=== PATIENT | male | born 1935 ===

== ENCOUNTER 2017-04-19 19:14 | Inpatient (IN) | payer OTHER, MEDICARE ==
[2017-04-19] MEDS ORDERED: Nitroglycerin 50mg in D5W 50 MG/250 ML BOTTLE IV ONE ×2 (19:16→19:29)
[2017-04-19 19:17] VITALS: BMI 40.6
[2017-04-19 19:38] LABS: BASO # 0.1 K/uL (0.0-0.2); BASO % 0.5 % (0.0-2.0); EOS % 7.9 % (0.0-4.0); HEMATOCRIT 38.8 % (35.0-51.0); LYMPH # 1.5 K/uL (1.0-4.3); LYMPH % 12.1 % (20.0-40.0); MEAN CELL VOLUME 81.2 fl (80.0-94.0); MEAN CORPUSCULAR HGB CONC 30.7 g/dL (33.0-37.0); MEAN PLATELET VOLUME 8.8 fl (7.2-11.7); MONO # 0.9 K/uL (0.0-0.8); MONO % 7.1 % (0.0-10.0); NEUT # 8.8 K/uL (1.8-7.0); NEUT % 72.4 % (50.0-75.0); RED CELL DISTRIBUTION WIDTH 18.9 % (11.5-14.5); WHITE BLOOD COUNT 12.2 K/uL (4.8-10.8)
[2017-04-19 20:58] LABS: RBC URINE < 1 /hpf (0-3); URINE BACTERIA RARE (<OCC); URINE BILIRUBIN NEGATIVE (NEGATIVE); URINE BLOOD NEGATIVE (NEGATIVE); URINE COLOR STRAW (YELLOW); URINE GLUCOSE (UA) NEG (Normal); URINE KETONE NEGATIVE (NEGATIVE); URINE LEUKOCYTE ESTERASE TRACE Leu/uL (Negative); URINE PROTEIN >=500 mg/dL (NEGATIVE); URINE UROBILINOGEN 0.2-1.0 mg/dL (0.2-1.0); WBC URINE 7 /hpf (0-5)
[2017-04-19 21:47] LABS: BLOOD UREA NITROGEN 15 mg/dl (9-20); CARBON DIOXIDE 28 mmol/L (22-30); CHLORIDE 102 mmol/L (98-107); GFR AFRICAN-AMERICAN > 60; GLUCOSE,RANDOM 121 mg/dL (75-110); LIPASE 47 U/L (23-300); POTASSIUM 4.3 MMOL/L (3.6-5.0); SODIUM 142 mmol/l (132-148)
--- NOTE | 2017-04-19 22:17 | ED PDOC ---
HPI: SOB/CHF/COPD Time Seen by Provider: 04/19/17 19:29 Chief Complaint (Nursing): Shortness Of Breath Chief Complaint (Provider): Shortness of Breath History Per: Patient History/Exam Limitations: no limitations Onset/Duration Of Symptoms: Days (several days) Current Symptoms Are (Timing): Still Present Quality: Tightness (chest tightness) Severity: Severe Associated Symptoms: Ankle/Leg Swelling, Other (chest tightness, shortness of breath) Additional Complaint(s): 81 year old male with a pertinent medical history of HTN and diabetes is brought into the ED by EMS for respiratory distress. HPI is limited due to patient's inability to answer secondary to clinical condition. HPI as per EMS: patient was found in his car returning from [facility] when he started to have acute onset shortness of breath and chest tightness (ongoing and worsening) accompanied by lower extremity edema. PMD: Raymond Agosto MD Past Medical History Reviewed: Historical Data, Nursing Documentation, Vital Signs Vital Signs: Last Vital Signs Temp Pulse 95 H 04/19/17 23:14 Resp 24 04/19/17 19:31 BP 163/132 H 04/19/17 19:32 Pulse Ox 92 L 04/19/17 23:14 - Medical History PMH: CHF (patient currently getting a workup from PMD for possible CHF), Diabetes, HTN Denies: Chronic Kidney Disease - Surgical History Other surgeries: toe surgery [facility] - Family History Family History: States: Unknown Family Hx - Living Arrangements Living Arrangements: With Family - Social History Current smoker - smoking cessation education provided: No Alcohol: None Drugs: Denies - Home Medications Home Medications: Ambulatory Orders Medication Instructions Recorded Carvedilol [Coreg] 25 mg PO DAILY 04/19/17 Furosemide [Lasix] 20 mg PO QAM 04/19/17 Insulin Glargine, Recombina 25 units SC BID 04/19/17 [Lantus] Olmesartan Medoxomil [Benicar] 20 mg PO DAILY 04/19/17 SITagliptin [Januvia] 100 mg PO DAILY 04/19/17 metFORMIN [glucOPHAGE] 500 mg PO BID 04/19/17 - Allergies Allergies/Adverse Reactions: Allergies Allergy/AdvReac Type Severity Reaction Status Date / Time No Known Allergies Allergy Verified 04/19/17 19:31 Review of Systems Review Of Systems: ROS cannot be obtained secondary to pt's inabilty to answer questions. (due to clinical condition) Physical Exam - Reviewed Nursing Documentation Reviewed: Yes Vital Signs Reviewed: Yes - Physical Exam Appears: Positive for: Non-toxic, In Acute Distress (severe respiratory distress ) Head Exam: Positive for: ATRAUMATIC, NORMOCEPHALIC Skin: Positive for: Dry, Diaphoresis. Negative for: Warm (cool and clammy extremities. other: chronic appearing skin changes.) Cardiovascular/Chest: Positive for: Regular Rate, Rhythm Respiratory: Positive for: Decreased Breath Sounds (diminished breath sounds bilaterally) Extremity: Positive for: Swelling (bilateral lower extremities 3+ non pitting edema) Neurologic/Psych: Positive for: Alert, Oriented (3x. neuro in tact) - Laboratory Results Result Diagrams: 04/19/17 19:20 04/19/17 20:20 - ECG ECG: Positive for: Interpreted By Me ECG Rhythm: Positive for: Sinus Rhythm, ST/T Changes Rate: 95 O2 Sat by Pulse Oximetry: 92 (RA) Pulse Ox Interpretation: Abnormal (mod hypoxia on 100% NRB) - Radiology X-Ray: Interpreted by Tx X-Ray Interpretation: Cardiomegaly - Critical Care Total Time (In Min): 75 Comments: pt required immediate and sustained bedside attention for resp distress and unstable vital signs Medical Decision Making Medical Decision Makin:29 Initial impression: 81 year old male in respiratory distress, Initial plan: Workup for likely CHF insetting of hypertension. Patient is placed on BIPAP for respiratory distress and lasix nitroglycerin drip is initiated. * Type and screen * ABG shock panel * EKG * B-type natriuretic peptide * BMP * lipase * troponin I * CBC * PT/PTT * XRay chest 1 view * reevaluation 20:00 Patient's arrives to ED. She reports that patient is currently under workup for CHF with his PMD. She reports that he is due to have an echocardiogram and stress test next month. She states that he takes lasix daily and for the past several days he has been complaining of shortness of breath. 22:30 Patients respiratory status has mildly improved on BIPAP, however he remains nitroglycerin drip dependent and pCO2 on ABG reveals hypercarbia of 58. Patient's will be upgraded to ICU for management of symptoms of CHF exacerbation with respiratory failure and under Dr. Agosto. There is agreement to plan. 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 Scribe Attestation: Documented by Shelia Spencer, acting as a scribe for Tristen Woodard III, MD. Provider Scribe Attestation: All medical record entries made by the Scribe were at my direction and personally dictated by me. I have reviewed the chart and agree that the record accurately reflects my personal performance of the history, physical exam, medical decision making, and the department course for this patient. I have also personally directed, reviewed, and agree with the discharge instructions and disposition. Disposition - Clinical Impression Clinical Impression: CHF exacerbation, Respiratory distress, Hypercarbia - Patient ED Disposition Is Patient to be Admitted: Yes Counseled Patient/Family Regarding: Studies Performed - Disposition Disposition Time: 21:39 Condition: STABLE
[2017-04-19 22:50] LABS: ABG ALLEN TEST YES; ABG MECHANICAL RATE 14; ARTERIAL BLOOD GAS HCO3 32.2 mmol/L (21-28); ARTERIAL BLOOD GAS PO2 180 mm/Hg (80-100)
--- NOTE | 2017-04-19 23:52 | CP.PCM.HP ---
Past Patient History - Past Social History Alcohol: None Drugs: Denies - CARDIAC Hx Congestive Heart Failure: Yes (patient currently getting a workup from PMD for possible CHF) Hx Hypertension: Yes - PULMONARY Hx Respiratory Disorders: No - NEUROLOGICAL Hx Neurological Disorder: No - HEENT Hx HEENT Problems: No - RENAL Hx Chronic Kidney Disease: No - ENDOCRINE/METABOLIC Hx Diabetes Mellitus Type 2: Yes - HEMATOLOGICAL/ONCOLOGICAL Hx Blood Disorders: No - INTEGUMENTARY Hx Dermatological Problems: No - MUSCULOSKELETAL/RHEUMATOLOGICAL Hx Musculoskeletal Disorders: No - GASTROINTESTINAL Hx Gastrointestinal Disorders: No - GENITOURINARY/GYNECOLOGICAL Hx Genitourinary Disorders: No - PSYCHIATRIC Hx Psychophysiologic Disorder: No Hx Substance Use: No Meds Allergies/Adverse Reactions: Allergies Allergy/AdvReac Type Severity Reaction Status Date / Time No Known Allergies Allergy Verified 04/19/17 19:31 Results - Vital Signs Recent Vital Signs: Last Vital Signs Temp Pulse 95 H 04/19/17 23:15 Resp 24 04/19/17 19:31 BP 163/132 H 04/19/17 19:32 Pulse Ox 92 L 04/19/17 23:15 - Labs Result Diagrams: 04/19/17 19:20 04/19/17 20:20 Labs: Laboratory Results - last 24 hr 04/19/17 04/19/17 21:40 22:30 pCO2 58 H pO2 180 H HCO3 32.2 H ABG pH 7.40 ABG Total CO2 37.7 H ABG O2 Saturation 100.1 H ABG Base Excess 9.3 H Aquiles Test Yes ABG Potassium 3.8 A-a O2 Difference 175.0 Sodium 140.0 Chloride 105.0 Glucose 111 H Lactate 0.6 L Mechanical Rate 14 FiO2 60.0 Pressure Support 0 Inspiratory BiPAP 10 Expiratory BiPAP 5 Arterial Blood Potassium 3.8 Blood Type Confirm O POSITIVE Assessment & Plan - Date & Time Date: 04/19/17 Time: 23:52
--- NOTE | 2017-04-19 23:56 | CP.PCM.CON ---
History of Present Illness - History of Present Illness History of Present Illness: Attending: Dr Agosto Reason for Consult: Critical care management Chief complaint: SOB HPI: 81 years old male with hx of HTN, DM, edema to both lower extremities, being worked up for CHF, comes with one day of worsening SOB and chest tightness. He has been having SOB for several days and was following up with his PMD for CHF. In the ED the the initial BP was 236/123mmHg and the patient was in severe respiratory distress. He was given IV lasix and placed on BIPAP and a tridil drip started. he has appointment with his PCP for nest Tuesday. PMH:CHF (patient currently getting a workup from PMD for possible CHF), Diabetes , HTN PSH: Bilateral Hip replacement, Toe surgery SH: Quit smoking 30years; Alcohol occasionally; Live with ; Retired FH: unknown family history Allergies: NKDA Review of Systems - Constitutional Constitutional: absent: Anorexia, Chills, Fever, Headache, Lethargy - EENT Eyes: Requires Corrective Lenses. absent: Diplopia, Floaters, Pain Ears: absent: Decreased Hearing, Ear Discharge, Ear Pain, Tinnitus Nose/Mouth/Throat: absent: Epistaxis, Nasal Congestion, Nasal Discharge - Cardiovascular Cardiovascular: Dyspnea, Dyspnea on Exertion, Edema, Pedal Edema - Respiratory Respiratory: Cough, Dyspnea, Dyspnea on Exertion, Chest Congestion - Gastrointestinal Gastrointestinal: Abdominal Pain. absent: Constipation, Diarrhea, Nausea, Vomiting - Genitourinary Genitourinary: absent: Dysuria, Flank Pain, Hematuria, Urinary Frequency - Musculoskeletal Musculoskeletal: Arthralgias Additional comments: leg pains - Integumentary Integumentary: Swelling. absent: Pruritus, Rash Additional comments: Weeping edema at the lower extremities - Neurological Neurological: absent: Confusion, Focal Weakness, Headaches, Syncope Additional comments: Uses walker - Psychiatric Psychiatric: absent: Anxiety, Depression, Panic Attacks - Endocrine Endocrine: absent: Palpitations, Polydipsia, Polyphagia, Polyuria - Hematologic/Lymphatic Hematologic: absent: Easy Bleeding, Easy Bruising Past Patient History - Past Social History Smoking Status: Former Smoker Chewing Tobacco Use: No Cigar Use: No Alcohol: None Drugs: Denies Home Situation {Lives}: With Family - CARDIAC Hx Congestive Heart Failure: Yes (patient currently getting a workup from PMD for possible CHF) Hx Hypertension: Yes - PULMONARY Hx Respiratory Disorders: No - NEUROLOGICAL Hx Neurological Disorder: No - HEENT Hx HEENT Problems: No - RENAL Hx Chronic Kidney Disease: No - ENDOCRINE/METABOLIC Hx Diabetes Mellitus Type 2: Yes - HEMATOLOGICAL/ONCOLOGICAL Hx Blood Disorders: No - INTEGUMENTARY Hx Dermatological Problems: No - MUSCULOSKELETAL/RHEUMATOLOGICAL Hx Musculoskeletal Disorders: No - GASTROINTESTINAL Hx Gastrointestinal Disorders: No - GENITOURINARY/GYNECOLOGICAL Hx Genitourinary Disorders: No - PSYCHIATRIC Hx Psychophysiologic Disorder: No Hx Substance Use: No - SURGICAL HISTORY Hx Surgeries: Yes Other/Comment: Bilateral hip prosthesis/ Left foot toe surgery - ANESTHESIA Hx Anesthesia: Yes Hx Anesthesia Reactions: No Meds Allergies/Adverse Reactions: Allergies Allergy/AdvReac Type Severity Reaction Status Date / Time No Known Allergies Allergy Verified 04/19/17 19:31 - Medications Medications: Current Medications Nitroglycerin/Dextrose (Nitroglycerin 50 Mg/250 Ml D5w) 50 mg in 250 mls @ 2.4 mls/hr IV .Q24H ONE; 8 MCG/MIN PRN Reason: Protocol Stop: 04/20/17 19:28 Last Admin: 04/19/17 19:31 Dose: 2.4 mls/hr Physical Exam - Constitutional Appears: In Acute Distress - Head Exam Head Exam: ATRAUMATIC, NORMAL INSPECTION, NORMOCEPHALIC - Eye Exam Eye Exam: EOMI, Normal appearance Pupil Exam: PERRL - ENT Exam ENT Exam: Mucous Membranes Moist, Normal Exam, Normal External Ear Exam, Normal Oropharynx - Neck Exam Neck exam: Positive for: Full Rom, Normal Inspection. Negative for: Lymphadenopathy, Tenderness - Respiratory Exam Additional comments: Mild rales in both lung mejia - Cardiovascular Exam Cardiovascular Exam: REGULAR RHYTHM, RRR, +S1, +S2 - GI/Abdominal Exam GI & Abdominal Exam: Normal Bowel Sounds, Soft. absent: Organomegaly, Tenderness - Rectal Exam Rectal Exam: Deferred - Extremities Exam Additional comments: Edema to both lower extremities with Bronz colored dry skin at distal half of both lower extremities, non tender to palpation. - Back Exam Back exam: NORMAL INSPECTION. absent: CVA tenderness (L), CVA tenderness (R) - Neurological Exam Neurological exam: CN II-XII Intact, Normal Gait, Oriented x3, Reflexes Normal - Psychiatric Exam Psychiatric exam: Normal Affect, Normal Mood - Skin Skin Exam: Dry, Intact, Normal Color, Warm Results - Vital Signs Recent Vital Signs: Last Vital Signs Temp Pulse 70 04/19/17 23:52 Resp 24 04/19/17 19:31 BP 163/132 H 04/19/17 19:32 Pulse Ox 92 L 04/19/17 23:15 - Labs Result Diagrams: 04/19/17 19:20 04/19/17 20:20 Labs: Laboratory Results - last 24 hr 04/19/17 04/19/17 21:40 22:30 pCO2 58 H pO2 180 H HCO3 32.2 H ABG pH 7.40 ABG Total CO2 37.7 H ABG O2 Saturation 100.1 H ABG Base Excess 9.3 H Aquiles Test Yes ABG Potassium 3.8 A-a O2 Difference 175.0 Sodium 140.0 Chloride 105.0 Glucose 111 H Lactate 0.6 L Mechanical Rate 14 FiO2 60.0 Pressure Support 0 Inspiratory BiPAP 10 Expiratory BiPAP 5 Arterial Blood Potassium 3.8 Blood Type Confirm O POSITIVE - EKG Data EKG comments: NSR 95/min - Imaging and Cardiology Chest x-ray Status: Image reviewed by me Additional comment: Bilateral interstitial infiltrate Assessment & Plan - Assessment and Plan (Free Text) Assessment: #. Acute CHF #. Respiratory distress #. Hypertensive Urgency #. DM II #. leukocytosis #. Anemia Plan: 81 years old male with hx of HTN, DM, edema to both lower extremities,being worked up for CHF, comes with one day of worsening SOB and chest tightness. He has been having SOB for several days and was following up with his PMD for CHF. In the ED the initial BP was 236/123mmHg abd the patient was in severe respiratory distress. #. Acute CHF - consult Dr Storey Cardiology - IV lasix 40mg BID - Coreg - Losartan - ECHO for wall motion and Ventricular function #. Respiratory distress - BIPAP 10/5 rate of 14 and FiO2 60% #. Hypertensive Urgency - Admit to ICU - Tridil Drip - Monitor BP #. DM II - Diabetic diet - Accucheck with sliding scale Aspart - Levemir - Metformin - Januvia #. Reactive leukocytosis - follow WBC #. Anemia - Follow Hb #. DVT Prophylaxis with Lovenox #. Code Status: Full - Date & Time Date: 04/19/17 Time: 23:55
[2017-04-20] MEDS ORDERED: Nitroglycerin 50mg in D5W 50 MG/250 ML BOTTLE IV ONE ×2 (00:09→20:19)
[2017-04-20 07:02] LABS: BASO % 0.5 % (0.0-2.0); EOS # 0.6 K/uL (0.0-0.7); EOS % 6.9 % (0.0-4.0); HEMATOCRIT 30.8 % (35.0-51.0); LYMPH # 0.8 K/uL (1.0-4.3); LYMPH % 9.3 % (20.0-40.0); MEAN CELL VOLUME 79.6 fl (80.0-94.0); MEAN CORPUSCULAR HEMOGLOBIN 25.5 pg (27.0-31.0); MEAN CORPUSCULAR HGB CONC 32.1 g/dL (33.0-37.0); MEAN PLATELET VOLUME 8.9 fl (7.2-11.7); MONO # 0.8 K/uL (0.0-0.8); NEUT # 6.4 K/uL (1.8-7.0); NEUT % 74.3 % (50.0-75.0); PLATELET COUNT 207 K/uL (130-400); RED CELL DISTRIBUTION WIDTH 17.9 % (11.5-14.5); WHITE BLOOD COUNT 8.7 K/uL (4.8-10.8)
[2017-04-20 07:13] LABS: BLOOD UREA NITROGEN 14 mg/dl (9-20); CALCIUM 8.4 mg/dL (8.4-10.2); CARBON DIOXIDE 30 mmol/L (22-30); CHLORIDE 102 mmol/L (98-107); CHOLESTEROL 75 mg/dL (0-199); GFR AFRICAN-AMERICAN > 60; GLUCOSE,RANDOM 72 mg/dL (75-110); POTASSIUM 3.6 MMOL/L (3.6-5.0); SODIUM 142 mmol/l (132-148)
--- NOTE | 2017-04-20 08:07 | CARD ---
APPROVED REPORT EKG Measurement Heart [id number] KS [id number] [id number] <Conclusion> Normal sinus rhythm Incomplete LBBB Abnormal ECG
[2017-04-20] MEDS: Enoxaparin 40 mg Syringe SC SCH (08:52)
--- NOTE | 2017-04-20 10:14 | RAD ---
PROCEDURE: CHEST RADIOGRAPH, 1 VIEW HISTORY: respiratory distress COMPARISON: None available. FINDINGS: LUNGS: Clear. PLEURA: No pneumothorax or pleural fluid seen. CARDIOVASCULAR: Normal. OSSEOUS STRUCTURES: No significant abnormalities. VISUALIZED UPPER ABDOMEN: Normal. OTHER FINDINGS: None. IMPRESSION: No active disease.
--- NOTE | 2017-04-20 10:34 | HP ---
The patient is a 81-year-old male who was admitted via the Emergency Room to the intensive care unit because of progressively worsening shortness of breath on the day of admission with chest tightness a nd uncontrolled hypertension. 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 Was seen in the Emergency Room with a blood pressure of 236/123 and placed on a BiPAP machine and placed also on IV antihypertensive drip. The symptoms did not improve and he was admitted to the intensive care unit. PAST MEDICAL HISTORY: He has a past medical history of congestive heart failure and hypertension and diabetes, but has been noncompliant with diet. He indicates he has been compliant with his medicati ons. He also has a history of bilateral hip replacement surgery and a left toe surgery years ago. SOCIAL HISTORY: He quit smoking 30 years ago and does not drink alcohol. Lives at home with a and does not use drugs. REVIEW OF SYSTEMS: Remarkable for swelling of the legs and exercise intolerance. PHYSICAL EXAMINATION: GENERAL: The patient is alert, oriented, appears to be presently much more comfortable at rest. VITAL SIGNS: On admission, blood pressure 162/132, pulse of 70, respirations 24. He is afebrile. O 2 sat 92% on nasal cannula oxygen. SKIN: Shows fair turgor with stasis changes of lower extremities. HEENT: Pupils equal, react to light and accommodation. JVP flat. Mouth shows fair hygiene. LUNGS: Show poor aeration bilaterally with coarse rales and dullness. HEART: S1, S2. ABDOMEN: Soft, distended, no organomegaly. RECTAL AND GENITALIA: Unremarkable. EXTREMITIES: 1+ pitting pedal edema bilaterally with stasis changes of lower extremities. CENTRAL NERVOUS SYSTEM: Grossly intact. LABORATORY DATA: Remarkable for sodium of 142, potassium 4.3, BUN 15, creatinine 0.9, serum glucose 121. ABGs done on BiPAP: PH 7.4, pCO2 58, pO2 of 180, bicarbonate of 32. EKG: Normal sinus rhythm , 95 per minute. Chest x-ray official report is pending but shows bilateral interstitial infiltrates . WBC 12.3, hemoglobin 11.9, platelet count of 265,000. Troponin 0.03. ProBNP 2650. IMPRESSION: Acute congestive heart failure; hypertension, poorly controlled, with hypertensive crisi s; diabetes mellitus, pedal edema due to hypertension and congestive heart failure, poor compliance w ith diet and medications. PLAN: Cardiac evaluation, diuretic therapy, monitor blood pressure closely in ICU. Further therapy will depend on findings. Echocardiogram already ordered. Raymond Agosto MD cc: 62 TT: 04/20/2017 10:34:17 mn
[2017-04-20 11:19] LABS: TOTAL CELLS COUNTED 100
[2017-04-20 11:57] LABS: NEUTROPHIL 78 % (42-75)
[2017-04-20 11:58] LABS: EOSINOPHIL 7 % (0-7)
[2017-04-20 11:59] LABS: BASOPHIL 0 % (0-2)
--- NOTE | 2017-04-20 12:23 | CP.CCUPN ---
CCU Subjective - Physician Review Subjective (Free Text): MANAGEMENT COORDINATOR PROGRESS NOTE Patient examined, interim events reviewed: On BiPAP overnight, just switched to nasal cannula oxygen, no distress, no fever spikes overnight, denies any recurrent chest discomfort or dyspnea at bed rest. On IV NTG drip up to over 60 mcg/min. Afebrile, no fever spikes, Bp 160/85 , HR 89, RR 23, SPO2 99% on nasal oxygen. 24H I/O's= negative 1.0L ROS: as above, no other pertinent negs or positives on 10 system review. PMFSH: all nursing and historical notes reviewed, no new pertinent data relevant to current problems. No other distress noted: EXAM- HEENT: no icterus, pupils equal and reactive NECK: no visible JVD, supple, carotids equal upstroke bilat/no bruits CHEST: decreased BS bases, no wheezes HEART: regular, distant, S1S2, no murmur audible, no rubs. ABD: soft, no increased distention, no focal tenderness, no HSM. BS hypoactive , EXT: ++ edema, no peripheral/ digital cyanosis, no calf tenderness or palpable cords, distal pulses intact and symmetrical NEURO: oriented x 3; no gross focal motor deficits SKIN: no rashes LABS: WBC= 8.7 HGB= 9.9 PLTs= 207K Na= 142 K= 3.6 HCO3= 30 BUN/Cr= 14/0.7 BS= 72 Trops negative x 2 CXR: (my interp) from last evening, shows bilateral pulm edema pattern, cardiomegaly, no gross consolidation seen. EKG: on admission- sinus 95/min, inverted T 1, L; [id number] old EKG to compare. MAJOR PROBLEMS NOW: 1. Acute Resp insuff 2. Pulm Edema 2 Hypertensive Cardiomyopathy 3. Accelerated HTN PLAN: 1. Stable off BiPAP this Am for breakfast. Will keep on nasal cannula oxygen for now as tolerated. 2. Attain neg fluid balance with additional Lasix prn. 3. Wean Tridil off. 4. ECHO. 5. Already on BBs and ARBs. 6. On Metformin and Januvia: maintain normoglycemia.
--- NOTE | 2017-04-20 13:15 | CP.PCM.CON ---
History of Present Illness - History of Present Illness History of Present Illness: HPI: 81 years old male with hx of HTN, DM, edema to both lower extremities, being worked up for CHF, comes with one week of worsening SOB and FERRERA . He has been having SOB for several weeks and was following up with his PMD for CHF. Pt legs have been swollen for a long time Totally non compliant with salt/salty foods eats out every night PMH:CHF Diabetes, HTN PSH: Bilateral Hip replacement, Toe surgery SH: Quit smoking 30years; Alcohol occasionally; Live with ; Retired BNP: 2620 Troponin: neg EKG: Inc LBBB Echo:to be reviewed Past Patient History - Past Social History Smoking Status: Former Smoker Chewing Tobacco Use: No Cigar Use: No Alcohol: None Drugs: Denies Home Situation {Lives}: With Family - CARDIAC Hx Congestive Heart Failure: Yes (patient currently getting a workup from PMD for possible CHF) Hx Hypertension: Yes - PULMONARY Hx Respiratory Disorders: No - NEUROLOGICAL Hx Neurological Disorder: No - HEENT Hx HEENT Problems: No - RENAL Hx Chronic Kidney Disease: No - ENDOCRINE/METABOLIC Hx Diabetes Mellitus Type 2: Yes - HEMATOLOGICAL/ONCOLOGICAL Hx Blood Disorders: No - INTEGUMENTARY Hx Dermatological Problems: No - MUSCULOSKELETAL/RHEUMATOLOGICAL Hx Musculoskeletal Disorders: No - GASTROINTESTINAL Hx Gastrointestinal Disorders: No - GENITOURINARY/GYNECOLOGICAL Hx Genitourinary Disorders: No - PSYCHIATRIC Hx Psychophysiologic Disorder: No Hx Substance Use: No - SURGICAL HISTORY Hx Surgeries: Yes Other/Comment: Bilateral hip prosthesis/ Left foot toe surgery - ANESTHESIA Hx Anesthesia: Yes Hx Anesthesia Reactions: No Meds Allergies/Adverse Reactions: Allergies Allergy/AdvReac Type Severity Reaction Status Date / Time No Known Allergies Allergy Verified 04/19/17 19:31 - Medications Medications: Current Medications Carvedilol (Coreg) 25 mg PO DAILY [facility] Last Admin: 04/20/17 08:51 Dose: 25 mg Enoxaparin Sodium (Lovenox) 40 mg SC DAILY [facility] PRN Reason: Protocol Last Admin: 04/20/17 08:52 Dose: 40 mg Furosemide (Lasix) 40 mg IV BID [facility] Last Admin: 04/20/17 08:52 Dose: 40 mg Nitroglycerin/Dextrose (Nitroglycerin 50 Mg/250 Ml D5w) 50 mg in 250 mls @ 2.4 mls/hr IV .Q24H ONE; 8 MCG/MIN PRN Reason: Protocol Stop: 04/20/17 19:28 Last Admin: 04/19/17 19:26 Dose: 2.4 mls/hr Insulin Detemir (Levemir) 20 units SC HS [facility] Losartan Potassium (Cozaar) 50 mg PO DAILY [facility] Last Admin: 04/20/17 08:51 Dose: 50 mg Metformin HCl (Glucophage) 500 mg PO BID [facility] Last Admin: 04/20/17 08:51 Dose: 500 mg Sitagliptin Phosphate (Januvia) 100 mg PO DAILY [facility] Last Admin: 04/20/17 08:51 Dose: 100 mg Physical Exam - Respiratory Exam Respiratory Exam: Decreased Breath Sounds, Rales - Cardiovascular Exam Cardiovascular Exam: REGULAR RHYTHM - Extremities Exam Extremities exam: Positive for: pedal edema Results - Vital Signs Recent Vital Signs: Last Vital Signs Temp 98.8 F 04/20/17 12:00 Pulse 71 04/20/17 13:00 Resp 18 04/20/17 13:00 BP 142/87 04/20/17 13:00 Pulse Ox 98 04/20/17 13:00 - Labs Result Diagrams: 04/20/17 06:30 04/20/17 06:30 Labs: Laboratory Results - last 24 hr 04/19/17 04/19/17 04/20/17 21:40 22:30 06:30 WBC 8.7 RBC 3.86 L Hgb 9.9 L D Hct 30.8 L MCV 79.6 L MCH 25.5 L MCHC 32.1 L RDW 17.9 H Plt Count 207 MPV 8.9 Neut % (Auto) 74.3 Lymph % (Auto) 9.3 L Hitchcock % (Auto) 9.0 Eos % (Auto) 6.9 H Baso % (Auto) 0.5 Neut # 6.4 Lymph # 0.8 L Hitchcock # 0.8 Eos # 0.6 Baso # 0.0 Neutrophils % (Manual) 78 H Band Neutrophils % 2 Lymphocytes % (Manual) 7 L Monocytes % (Manual) 6 Eosinophils % (Manual) 7 Basophils % (Manual) 0 Toxic Granulation [employer] Floor [employer]er Platelet Estimate Normal Large Platelets [employer]ole[employer] Floor Installer Giant Platelets [employer] Floor Installer Hypochromasia (manual) Slight Poikilocytosis (manual [employer] Installer Anisocytosis (manual) Slight Microcytosis (manual) [employer]ole[employer] Floor Installer Tear Drop Cells [employer] Floor Installer Ovalocytes Slight Schistocytes [employer] Floor Installer pCO2 58 H pO2 180 H HCO3 32.2 H ABG pH 7.40 ABG Total CO2 37.7 H ABG O2 Saturation 100.1 H ABG Base Excess 9.3 H Aquiles Test Yes ABG Potassium 3.8 A-a O2 Difference 175.0 Sodium 140.0 Chloride 105.0 Glucose 111 H Lactate 0.6 L Mechanical Rate 14 FiO2 60.0 Pressure Support 0 Inspiratory BiPAP 10 Expiratory BiPAP 5 Potassium Carbon Dioxide Anion Gap BUN Creatinine Est GFR ( Amer) Est GFR (Non-Af Amer) POC Glucose (mg/dL) Random Glucose Calcium Troponin I Triglycerides Cholesterol LDL Cholesterol Direct HDL Cholesterol Arterial Blood Potassium 3.8 Blood Type Confirm O POSITIVE 04/20/17 04/20/17 04/20/17 06:30 06:43 11:03 WBC RBC Hgb Hct MCV MCH MCHC RDW Plt Count MPV Neut % (Auto) Lymph % (Auto) Hitchcock % (Auto) Eos % (Auto) Baso % (Auto) Neut # Lymph # Hitchcock # Eos # Baso # Neutrophils % (Manual) Band Neutrophils % Lymphocytes % (Manual) Monocytes % (Manual) Eosinophils % (Manual) Basophils % (Manual) Toxic Granulation Platelet Estimate Large Platelets Giant Platelets Hypochromasia (manual) Poikilocytosis (manual Anisocytosis (manual) Microcytosis (manual) Tear Drop Cells Ovalocytes Schistocytes pCO2 pO2 HCO3 ABG pH ABG Total CO2 ABG O2 Saturation ABG Base Excess Aquiles Test ABG Potassium A-a O2 Difference Sodium 142 Chloride 102 Glucose Lactate Mechanical Rate FiO2 Pressure Support Inspiratory BiPAP Expiratory BiPAP Potassium 3.6 Carbon Dioxide 30 Anion Gap 14 BUN 14 Creatinine 0.7 L Est GFR ( Amer) > 60 Est GFR (Non-Af Amer) > 60 POC Glucose (mg/dL) 73 154 H Random Glucose 72 L Calcium 8.4 Troponin I 0.0600 Triglycerides 57 Cholesterol 75 LDL Cholesterol Direct < 30 HDL Cholesterol 35 Arterial Blood Potassium Blood Type Confirm Assessment & Plan (1) Acute systolic CHF (congestive heart failure) Assessment and Plan: Agree with Tx Status: Acute (2) Essential (primary) hypertension Status: Acute (3) Diabetes mellitus Status: Acute
[2017-04-20] MEDS: Nasal Spray(Ocean spray) NAS PRN (21:03)
[2017-04-20] MEDS: Insulin Detemir 100 Units/ml Inj SC SCH (22:00)
[2017-04-21 05:10] LABS: ABG ALLEN TEST YES; ABG MECHANICAL RATE 14; ARTERIAL BLOOD GAS HCO3 34.8 mmol/L (21-28); ARTERIAL BLOOD GAS MODE BiPAP; ARTERIAL BLOOD GAS O2 CAPACITY 13.4 mL/dL (16-24); ARTERIAL BLOOD GAS O2 CONTENT 13.4 ML/dL (15-23); ARTERIAL BLOOD GAS PH 7.42 (7.35-7.45); ARTERIAL BLOOD GAS PO2 165 mm/Hg (80-100); ARTERIAL BLOOD HGB O2 SAT 96.9 % (95.0-98.0); CARBOXYHEMOGLOBIN 1.5 % (0.5-1.5); HHB 0.3 % (0.0-5.0); METHEMOGLOBIN 1.4 % (0.0-3.0)
[2017-04-21 05:37] LABS: BASO % 0.4 % (0.0-2.0); EOS # 0.6 K/uL (0.0-0.7); EOS % 6.7 % (0.0-4.0); HEMATOCRIT 30.7 % (35.0-51.0); LYMPH # 0.8 K/uL (1.0-4.3); LYMPH % 9.3 % (20.0-40.0); MEAN CELL VOLUME 80.2 fl (80.0-94.0); MEAN CORPUSCULAR HEMOGLOBIN 25.1 pg (27.0-31.0); MEAN CORPUSCULAR HGB CONC 31.4 g/dL (33.0-37.0); MEAN PLATELET VOLUME 9.2 fl (7.2-11.7); MONO % 11.3 % (0.0-10.0); NEUT # 6.4 K/uL (1.8-7.0); NEUT % 72.3 % (50.0-75.0); NRBC % 0.1 % (0.0-0.0); RED CELL DISTRIBUTION WIDTH 18.3 % (11.5-14.5); WHITE BLOOD COUNT 8.8 K/uL (4.8-10.8)
[2017-04-21 06:01] LABS: ALB/GLOB RATIO 0.9 (1.0-2.1); ALKALINE PHOSPHATASE 71 U/L (38-126); ALT/SGPT 25 U/L (21-72); AST/SGOT 45 U/L (17-59); BILIRUBIN,TOTAL 0.9 mg/dl (0.2-1.3); BLOOD UREA NITROGEN 16 mg/dl (9-20); CALCIUM 8.3 mg/dL (8.4-10.2); CARBON DIOXIDE 32 mmol/L (22-30); CHLORIDE 98 mmol/L (98-107); GFR AFRICAN-AMERICAN > 60; GLUCOSE,RANDOM 112 mg/dL (75-110); POTASSIUM 3.8 MMOL/L (3.6-5.0); SODIUM 139 mmol/l (132-148)
--- NOTE | 2017-04-21 08:05 | CARD ---
APPROVED REPORT EXAM: Two-dimensional and M-mode echocardiogram with Doppler and color Doppler. Other Information Quality : FairRhythm : INDICATION Congestive Heart Failure 2D DIMENSIONS IVSd1.85 (0.7-1.1cm)LVDd5.27 (3.9-5.9cm) PWd1.54 (0.7-1.1cm)IVSs1.93 (0.8-1.2cm) LVDs4.13 (2.5-4.0cm)FS (%) 21.7 % PWs2.15 (0.8-1.2cm) M-Mode DIMENSIONS Left Atrium (MM)4.52 (2.5-4.0cm)Aortic Root2.70 (2.2-3.7cm) Aortic Cusp Exc.1.32 (1.5-2.0cm) Aortic Valve AoV Peak Ckarizeb572.3cm/sAoV VTI28.6cmAO Peak GR.8mmHg LVOT Peak Igcajjbb10.7cm/Ev Mean GR.5mmHg Mitral Valve MV E Etemhrxt01.1cm/sMV DECEL [id number] A Pwonsquk35.3cm/s MV MMD46slE/A ratio1.2MVA (PHT)3.39cm2 TDI Lateral E' Peak V7.66cm/sMedial E' Peak V6.03cm/sE/Lateral E'9.5 E/Medial E'12.1 Pulmonary Valve PV Peak Qadhkqzu689.6cm/s Tricuspid Valve TR Peak Odowixfj197ui/sRAP RPBTSDAZ35qgWjLA Peak Gr.6mmHg [id number] LEFT VENTRICLE The left ventricle is normal size. There is mild to moderate concentric left ventricular hypertrophy. Left ventricle systolic function is normal. LVEF could not be assesed. Appeared to be normal. (Not all segments were clearly visualised.) Transmitral Doppler flow pattern is Grade I-abnormal relaxation pattern. RIGHT VENTRICLE The right ventricle is normal size. The right ventricle is mildly hypertrophied. The right ventricular systolic function is normal. ATRIA The left atrium size is normal. The right atrium size is normal. AORTIC VALVE The aortic valve is normal in structure and function. No aortic regurgitation is present. There is no aortic valvular stenosis. MITRAL VALVE Mitral annular calcification is moderate to severe. There is no evidence of mitral valve prolapse. There is no mitral valve stenosis. Mitral regurgitation is mild to moderate. TRICUSPID VALVE The tricuspid valve is normal in structure and function. There is no tricuspid valve regurgitation noted. PULMONIC VALVE The pulmonic valve is not well visualized. There is no pulmonic valvular regurgitation. GREAT VESSELS The aortic root is normal in size. The IVC is dilated. The IVC collapses <50% with inspiration. PERICARDIAL EFFUSION The pericardium appears normal. <Conclusion> The echo window was very poor and the imges were poor in quality. There is mild to moderate concentric left ventricular hypertrophy. Appeared to be normal. Left ventricle systolic function is normal. Transmitral Doppler flow pattern is Grade I-abnormal relaxation pattern. Mitral annular calcification is moderate to severe. Mitral regurgitation is mild to moderate. The IVC is dilated. The IVC collapses <50% with inspiration.
[2017-04-21] MEDS: Enoxaparin 40 mg Syringe SC SCH (08:27)
--- NOTE | 2017-04-21 08:32 | CP.PCM.PN ---
Subjective - Date & Time of Evaluation Date of Evaluation: 04/21/17 Time of Evaluation: 08:33 - Subjective Subjective: STILL ON BIPAP CHEST PAIN FREE DENIES SOB IV NTG STILL INFUSING BP IMPROVED BRADYCARDIA DUE TO MEDS ABGS REVIEWED Objective - Vital Signs/Intake and Output Vital Signs (last 24 hours): Temp Pulse Resp BP Pulse Ox 98.6 F 62 18 139/79 100 04/21/17 08:00 04/21/17 08:18 04/21/17 08:00 04/21/17 08:00 04/21/17 08:00 Intake and Output: 04/21/17 04/21/17 06:59 18:59 Intake Total 250 0 Output Total 1050 Balance -800 0 - Medications Medications: Current Medications Carvedilol (Coreg) 25 mg PO Q12H [facility] Last Admin: 04/21/17 03:00 Dose: 25 mg Enoxaparin Sodium (Lovenox) 40 mg SC DAILY [facility] PRN Reason: Protocol Last Admin: 04/20/17 08:52 Dose: 40 mg Furosemide (Lasix) 40 mg IV BID [facility] Last Admin: 04/20/17 16:58 Dose: 40 mg Nitroglycerin/Dextrose (Nitroglycerin 50 Mg/250 Ml D5w) 50 mg in 250 mls @ 18.9 mls/hr IV .[id number] ONE; 63 MCG/MIN PRN Reason: Protocol Stop: 04/21/17 09:32 Last Titration: 04/21/17 07:55 Dose: 38 mcg/min, 11.4 mls/hr Insulin Detemir (Levemir) 20 units SC [facility] Last Admin: 04/20/17 22:00 Dose: 20 u Losartan Potassium (Cozaar) 50 mg PO DAILY [facility] Last Admin: 04/20/17 08:51 Dose: 50 mg Metformin HCl (Glucophage) 500 mg PO BID [facility] Last Admin: 04/20/17 16:58 Dose: 500 mg Sitagliptin Phosphate (Januvia) 100 mg PO DAILY [facility] Last Admin: 04/20/17 08:51 Dose: 100 mg Sodium Chloride ([place] Nasal [place]) 2 sprays ANTONI Q4 PRN PRN Reason: Nasal congestion Last Admin: 04/20/17 21:03 Dose: 2 spr - Labs Labs: 04/21/17 04:20 04/21/17 04:20 PT 10.9 SECONDS (9.6-11.2) 04/19/17 19:20 INR 1.05 (0.92-1.08) 04/19/17 19:20 APTT 34.0 SECONDS (23.3-32.5) H 04/19/17 19:20 - Constitutional Appears: No Acute Distress - Head Exam Head Exam: ATRAUMATIC, NORMAL INSPECTION, NORMOCEPHALIC - Eye Exam Eye Exam: EOMI, Normal appearance, PERRL Pupil Exam: NORMAL ACCOMODATION, PERRL - ENT Exam ENT Exam: Mucous Membranes Moist, Normal Exam - Neck Exam Neck Exam: Full ROM, Normal Inspection. absent: Lymphadenopathy - Respiratory Exam Respiratory Exam: Decreased Breath Sounds, Prolonged Expiratory Phase, Rales, NORMAL BREATHING PATTERN - Cardiovascular Exam Cardiovascular Exam: Bradycardia, +S1, +S2. absent: Murmur - GI/Abdominal Exam GI & Abdominal Exam: Soft, Normal Bowel Sounds. absent: Tenderness - Rectal Exam Rectal Exam: NORMAL INSPECTION - Extremities Exam Extremities Exam: Full ROM, Normal Capillary Refill, Normal Inspection, Pedal Edema. absent: Joint Swelling - Back Exam Back Exam: NORMAL INSPECTION - Neurological Exam Neurological Exam: Alert, Awake, CN II-XII Intact, Normal Gait, Oriented x3 - Psychiatric Exam Psychiatric exam: Normal Affect, Normal Mood - Skin Skin Exam: Dry, Intact, Warm Assessment and Plan - Assessment and Plan (Free Text) Assessment: HYPERTENSIVE CRISIS--IMPROVED RESPIRATORY FAILURE CHF BRADYCARDIA CHEST PAINS Plan: WEAN OFF NTG DRIP MONITOR BP KEEP BIPAP AT HS AND GIVE O2 VIA NC DURING DAY OOB TO CHAIR
--- NOTE | 2017-04-21 10:22 | CP.PCM.PN ---
Subjective - Date & Time of Evaluation Date of Evaluation: 04/21/17 Time of Evaluation: 09:00 - Subjective Subjective: Breathing is sl better still on BIPAP HR 60-68 BPM Bradycardia most likely secondary to Coreg Pt appears comfortable Objective - Vital Signs/Intake and Output Vital Signs (last 24 hours): Temp Pulse Resp BP Pulse Ox 98.6 F 62 18 147/73 100 04/21/17 08:00 04/21/17 08:25 04/21/17 08:00 04/21/17 08:26 04/21/17 08:00 Intake and Output: 04/21/17 04/21/17 06:59 18:59 Intake Total 250 0 Output Total 1050 Balance -800 0 - Medications Medications: Current Medications Carvedilol (Coreg) 25 mg PO Q12H [facility] Last Admin: 04/21/17 03:00 Dose: 25 mg Enoxaparin Sodium (Lovenox) 40 mg SC DAILY [facility] PRN Reason: Protocol Last Admin: 04/21/17 08:27 Dose: 40 mg Furosemide (Lasix) 40 mg IV BID [facility] Last Admin: 04/21/17 08:26 Dose: 40 mg Insulin Detemir (Levemir) 20 units SC HS [facility] Last Admin: 04/20/17 22:00 Dose: 20 u Losartan Potassium (Cozaar) 50 mg PO DAILY [facility] Last Admin: 04/21/17 08:25 Dose: 50 mg Metformin HCl (Glucophage) 500 mg PO BID [facility] Last Admin: 04/21/17 08:26 Dose: 500 mg Sitagliptin Phosphate (Januvia) 100 mg PO DAILY [facility] Last Admin: 04/21/17 08:26 Dose: 100 mg Sodium Chloride ([place] Nasal [place]) 2 sprays ANTONI Q4 PRN PRN Reason: Nasal congestion Last Admin: 04/20/17 21:03 Dose: 2 spr - Labs Labs: 04/21/17 04:20 04/21/17 04:20 PT 10.9 SECONDS (9.6-11.2) 04/19/17 19:20 INR 1.05 (0.92-1.08) 04/19/17 19:20 APTT 34.0 SECONDS (23.3-32.5) H 04/19/17 19:20 Assessment and Plan (1) Acute systolic CHF (congestive heart failure) Assessment & Plan: continue present Tx Status: Acute (2) Essential (primary) hypertension Status: Acute (3) Diabetes mellitus Status: Acute
--- NOTE | 2017-04-21 11:59 | RAD ---
HISTORY: f/u CHF COMPARISON: Comparison made with chest radiograph 04/19/2017 FINDINGS: LUNGS: Previously noted mild central pulmonary vascular congestive changes appear improved. Left CP angle is poorly seen which may be due to technical artifact. Possibility of a small effusion or chronic pleural thickening cannot be excluded. PLEURA: No significant pleural effusion identified, no pneumothorax apparent. CARDIOVASCULAR: Heart appears borderline/mildly enlarged. OSSEOUS STRUCTURES: No significant abnormalities. VISUALIZED UPPER ABDOMEN: Normal. OTHER FINDINGS: None. IMPRESSION: Previously noted mild central pulmonary vascular congestive changes appear improved. . Left CP angle poorly delineated in part due to technical artifact however the possibility of a small effusion or chronic pleural thickening not excluded
--- NOTE | 2017-04-21 22:23 | CP.CCUPN ---
CCU Subjective - Physician Review Subjective (Free Text): METROLOGY SPECIALIST PROGRESS NOTE Patient examined, interim events reviewed: On BiPAP overnight, just switched to nasal cannula oxygen this AM with borderline SPO2 at 91-95% , but no distress, no fever spikes overnight, denies any recurrent chest discomfort or dyspnea at bed rest. On IV NTG drip now at 33 from 43 mcg/min overnight. Afebrile, no fever spikes, Bp 160/85, HR 69, RR 23, SPO2 99% on nasal oxygen. 24H I/O's= negative 2.6L ROS: as above, no other pertinent negs or positives on 10 system review. PMFSH: all nursing and historical notes reviewed, no new pertinent data relevant to current problems. No other distress noted: EXAM- HEENT: no icterus, pupils equal and reactive NECK: no visible JVD, supple, carotids equal upstroke bilat/no bruits CHEST: decreased BS bases, no wheezes HEART: regular, distant, S1S2, no murmur audible, no rubs. ABD: soft, no increased distention, no focal tenderness, no HSM. BS hypoactive , EXT: ++ edema, no peripheral/ digital cyanosis, no calf tenderness or palpable cords, distal pulses intact and symmetrical NEURO: oriented x 3; no gross focal motor deficits SKIN: no rashes LABS: WBC= 8.8 HGB= 9.6 PLTs= 198K Na= 139 K= 3.8 HCO3= 32 BUN/Cr= 16/0.9 BS= 112 Trops negative x 3 CXR: (my interp) improved bilat congestive changes, small L effusion.. MAJOR PROBLEMS NOW: 1. Acute Resp insuff 2. Pulm Edema 2 Hypertensive Cardiomyopathy 3. Accelerated HTN PLAN: 1. BiPAP support as mandated by Pulm. 2. Ongoing diuresis as tolerated. 3. Further weans off Tridil as tolerated. 4. ECHO results noted: mild diastolic dysfx mentioned. LVEF is normal. 5. WBC normal, on no abx. Monitor temps.
[2017-04-21] MEDS: Insulin Detemir 100 Units/ml Inj SC SCH (22:30)
[2017-04-22 08:23] LABS: BASO % 0.2 % (0.0-2.0); EOS # 0.7 K/uL (0.0-0.7); EOS % 8.9 % (0.0-4.0); LYMPH # 0.8 K/uL (1.0-4.3); LYMPH % 9.6 % (20.0-40.0); MEAN CELL VOLUME 80.6 fl (80.0-94.0); MEAN CORPUSCULAR HEMOGLOBIN 25.4 pg (27.0-31.0); MEAN CORPUSCULAR HGB CONC 31.5 g/dL (33.0-37.0); MEAN PLATELET VOLUME 8.9 fl (7.2-11.7); MONO # 0.9 K/uL (0.0-0.8); MONO % 11.2 % (0.0-10.0); NEUT # 5.6 K/uL (1.8-7.0); NEUT % 70.1 % (50.0-75.0); NRBC % 0.1 % (0.0-0.0); RED CELL DISTRIBUTION WIDTH 17.8 % (11.5-14.5)
[2017-04-22 08:25] LABS: ALB/GLOB RATIO 0.9 (1.0-2.1); ALKALINE PHOSPHATASE 69 U/L (38-126); ALT/SGPT 25 U/L (21-72); AST/SGOT 22 U/L (17-59); BILIRUBIN,TOTAL 0.9 mg/dl (0.2-1.3); BLOOD UREA NITROGEN 19 mg/dl (9-20); CALCIUM 8.4 mg/dL (8.4-10.2); CARBON DIOXIDE 30 mmol/L (22-30); CHLORIDE 99 mmol/L (98-107); GFR AFRICAN-AMERICAN > 60; GLUCOSE,RANDOM 108 mg/dL (75-110); POTASSIUM 3.8 MMOL/L (3.6-5.0); SODIUM 138 mmol/l (132-148)
[2017-04-22] MEDS: Enoxaparin 40 mg Syringe SC SCH (08:42)
--- NOTE | 2017-04-22 11:26 | CP.PCM.PN ---
Subjective - Date & Time of Evaluation Date of Evaluation: 04/22/17 Time of Evaluation: 10:00 - Subjective Subjective: clinically unchanged wbc: normal still with pedal edema continue present Tx Objective - Vital Signs/Intake and Output Vital Signs (last 24 hours): Temp Pulse Resp BP Pulse Ox 97.6 F 68 32 H 174/86 H 99 04/22/17 07:37 04/22/17 10:00 04/22/17 10:00 04/22/17 10:00 04/22/17 10:00 Intake and Output: 04/22/17 04/22/17 06:59 18:59 Intake Total 300 Output Total 725 Balance -425 - Medications Medications: Current Medications Carvedilol (Coreg) 25 mg PO Q12H [facility] Last Admin: 04/22/17 03:31 Dose: 25 mg Enoxaparin Sodium (Lovenox) 40 mg SC DAILY [facility] PRN Reason: Protocol Last Admin: 04/22/17 08:42 Dose: 40 mg Furosemide (Lasix) 40 mg IV BID [facility] Last Admin: 04/22/17 08:41 Dose: 40 mg Insulin Detemir (Levemir) 20 units SC HS [facility] Last Admin: 04/21/17 22:30 Dose: 20 u Lactic Acid (Lac-Hydrin 12% Lotion (225 G)) 1 applic TOP TID [facility] Last Admin: 04/22/17 08:41 Dose: 1 applic Losartan Potassium (Cozaar) 50 mg PO DAILY [facility] Last Admin: 04/22/17 08:40 Dose: 50 mg Metformin HCl (Glucophage) 500 mg PO BID [facility] Last Admin: 04/22/17 08:40 Dose: 500 mg Sitagliptin Phosphate (Januvia) 100 mg PO DAILY [facility] Last Admin: 04/22/17 08:40 Dose: 100 mg Sodium Chloride ([place] Nasal [place]) 2 sprays ANTONI Q4 PRN PRN Reason: Nasal congestion Last Admin: 04/20/17 21:03 Dose: 2 spr - Labs Labs: 04/22/17 07:40 04/22/17 07:40 PT 10.9 SECONDS (9.6-11.2) 04/19/17 19:20 INR 1.05 (0.92-1.08) 04/19/17 19:20 APTT 34.0 SECONDS (23.3-32.5) H 04/19/17 19:20 Assessment and Plan (1) Acute systolic CHF (congestive heart failure) Status: Acute (2) Essential (primary) hypertension Status: Acute (3) Diabetes mellitus Status: Acute
--- NOTE | 2017-04-22 12:05 | CP.CCUPN ---
CCU Subjective - Physician Review Subjective (Free Text): ARMATURE VARNISHER PROGRESS NOTE Patient examined, interim events reviewed: On BiPAP overnight, and off for meals with good tolerance, off IV NTG, on topical paste, just switched to nasal cannula oxygen this AM; SPO2 at 91-95% , but no distress, no fever spikes overnight, denies any recurrent chest discomfort or dyspnea at bed rest. Afebrile, no fever spikes, Bp 140/75, HR 79, RR 23, SPO2 99% on nasal oxygen. ROS: as above, no other pertinent negs or positives on 10 system review. PMFSH: all nursing and historical notes reviewed, no new pertinent data relevant to current problems. No other distress noted: EXAM- HEENT: no icterus, pupils equal and reactive NECK: no visible JVD, supple, carotids equal upstroke bilat/no bruits CHEST: decreased BS bases, no wheezes HEART: regular, distant, S1S2, no murmur audible, no rubs. ABD: soft, no increased distention, no focal tenderness, no HSM. BS hypoactive , EXT: ++ edema, no peripheral/ digital cyanosis, no calf tenderness or palpable cords, distal pulses intact and symmetrical NEURO: oriented x 3; no gross focal motor deficits SKIN: no rashes LABS: WBC= 8.0 HGB= 10.1 PLTs= 183K Na= 138 K= 3.8 HCO3= 30 BUN/Cr= 19/1.1 BS= 108 MAJOR PROBLEMS NOW: 1. Acute Resp insuff 2. Pulm Edema 2 Hypertensive Cardiomyopathy 3. Accelerated HTN PLAN: 1. BiPAP support as mandated by Pulm. 2. Ongoing diuresis as tolerated. 3. Off tridil, on topical NTP. 4. ECHO results noted: mild diastolic dysfx mentioned. LVEF is normal.
[2017-04-22] MEDS ORDERED: DiphenhydrAMINE 50 mg/ml Inj IVP STA (12:50)
--- NOTE | 2017-04-22 13:04 | CP.PCM.PN ---
Subjective - Date & Time of Evaluation Date of Evaluation: 04/22/17 Time of Evaluation: 13:05 - Subjective Subjective: CLINICALLY IMPROVED OOB TO CHAIR TOLERATING NC O2 Objective - Vital Signs/Intake and Output Vital Signs (last 24 hours): Temp Pulse Resp BP Pulse Ox 97.5 F L 72 25 H 148/77 95 04/22/17 12:18 04/22/17 12:18 04/22/17 12:18 04/22/17 12:18 04/22/17 12:18 Intake and Output: 04/22/17 04/22/17 06:59 18:59 Intake Total 300 Output Total 725 Balance -425 - Medications Medications: Current Medications Carvedilol (Coreg) 25 mg PO Q12H [facility] Last Admin: 04/22/17 03:31 Dose: 25 mg Diphenhydramine HCl (Benadryl) 50 mg IVP STAT STA Stop: 04/22/17 12:51 Enoxaparin Sodium (Lovenox) 40 mg SC DAILY [facility] PRN Reason: Protocol Last Admin: 04/22/17 08:42 Dose: 40 mg Furosemide (Lasix) 40 mg IV BID [facility] Last Admin: 04/22/17 08:41 Dose: 40 mg Insulin Detemir (Levemir) 20 units SC HS [facility] Last Admin: 04/21/17 22:30 Dose: 20 u Lactic Acid (Lac-Hydrin 12% Lotion (225 G)) 1 applic TOP TID [facility] Last Admin: 04/22/17 08:41 Dose: 1 applic Losartan Potassium (Cozaar) 50 mg PO DAILY [facility] Last Admin: 04/22/17 08:40 Dose: 50 mg Metformin HCl (Glucophage) 500 mg PO BID [facility] Last Admin: 04/22/17 08:40 Dose: 500 mg Sitagliptin Phosphate (Januvia) 100 mg PO DAILY [facility] Last Admin: 04/22/17 08:40 Dose: 100 mg Sodium Chloride ([place] Nasal [place]) 2 sprays ANTONI Q4 PRN PRN Reason: Nasal congestion Last Admin: 04/20/17 21:03 Dose: 2 spr - Labs Labs: 04/22/17 07:40 04/22/17 07:40 PT 10.9 SECONDS (9.6-11.2) 04/19/17 19:20 INR 1.05 (0.92-1.08) 04/19/17 19:20 APTT 34.0 SECONDS (23.3-32.5) H 04/19/17 19:20 - Constitutional Appears: No Acute Distress - Head Exam Head Exam: ATRAUMATIC, NORMAL INSPECTION, NORMOCEPHALIC - Eye Exam Eye Exam: EOMI, Normal appearance, PERRL Pupil Exam: NORMAL ACCOMODATION, PERRL - ENT Exam ENT Exam: Mucous Membranes Moist, Normal Exam - Neck Exam Neck Exam: Full ROM, Normal Inspection. absent: Lymphadenopathy - Respiratory Exam Respiratory Exam: Prolonged Expiratory Phase, NORMAL BREATHING PATTERN - Cardiovascular Exam Cardiovascular Exam: REGULAR RHYTHM, +S1, +S2. absent: Murmur - GI/Abdominal Exam GI & Abdominal Exam: Soft, Normal Bowel Sounds. absent: Tenderness - Rectal Exam Rectal Exam: NORMAL INSPECTION - Extremities Exam Extremities Exam: Full ROM, Normal Capillary Refill, Normal Inspection, Pedal Edema. absent: Joint Swelling Additional comments: EDEMA LESS - Back Exam Back Exam: NORMAL INSPECTION - Neurological Exam Neurological Exam: Alert, Awake, CN II-XII Intact, Normal Gait, Oriented x3 - Psychiatric Exam Psychiatric exam: Normal Affect, Normal Mood - Skin Skin Exam: Dry, Intact, Normal Color, Warm Assessment and Plan - Assessment and Plan (Free Text) Assessment: CHF WITH RESP FAILURE-IMPROVED HTN-IMPROVED Plan: TRANSFER TO TELE D/C BIPAP MAINTAIN ON NC O2
[2017-04-22] MEDS: Insulin Detemir 100 Units/ml Inj SC SCH (21:21)
[2017-04-23 04:50] LABS: ABG ALLEN TEST YES; ARTERIAL BLOOD GAS HCO3 35.8 mmol/L (21-28); ARTERIAL BLOOD GAS MODE NASAL CANNULA; ARTERIAL BLOOD GAS O2 CAPACITY 14.2 mL/dL (16-24); ARTERIAL BLOOD GAS PH 7.44 (7.35-7.45); ARTERIAL BLOOD GAS PO2 93 mm/Hg (80-100); ARTERIAL BLOOD HGB O2 SAT 95.6 % (95.0-98.0); CARBOXYHEMOGLOBIN 1.8 % (0.5-1.5); HHB 1.1 % (0.0-5.0); METHEMOGLOBIN 1.4 % (0.0-3.0)
[2017-04-23] MEDS: Nasal Spray(Ocean spray) NAS PRN (05:16)
[2017-04-23] MEDS: Enoxaparin 40 mg Syringe SC SCH (09:11)
--- NOTE | 2017-04-23 10:17 | CP.PCM.PN ---
Subjective - Date & Time of Evaluation Date of Evaluation: 04/23/17 Time of Evaluation: 10:18 - Subjective Subjective: FEELS WELL NO APPARENT DISTRESS COUGH AND CHEST PAINS RESOLVED Objective - Vital Signs/Intake and Output Vital Signs (last 24 hours): Temp Pulse Resp BP Pulse Ox 97.8 F 62 18 176/80 H 100 04/23/17 08:17 04/23/17 09:10 04/23/17 08:17 04/23/17 09:10 04/23/17 08:17 Intake and Output: 04/23/17 04/23/17 06:59 18:59 Intake Total 300 Output Total 800 Balance -500 - Medications Medications: Current Medications Carvedilol (Coreg) 25 mg PO Q12H [facility] Last Admin: 04/23/17 02:21 Dose: 25 mg Furosemide (Lasix) 40 mg IV BID [facility] Last Admin: 04/23/17 09:10 Dose: 40 mg Insulin Detemir (Levemir) 20 units SC HS [facility] Last Admin: 04/22/17 21:21 Dose: 20 u Lactic Acid (Lac-Hydrin 12% Lotion (225 G)) 1 applic TOP TID [facility] Last Admin: 04/22/17 16:21 Dose: 1 applic Losartan Potassium (Cozaar) 50 mg PO DAILY [facility] Last Admin: 04/23/17 09:10 Dose: 50 mg Metformin HCl (Glucophage) 500 mg PO BID [facility] Last Admin: 04/23/17 09:09 Dose: 500 mg Sitagliptin Phosphate (Januvia) 100 mg PO DAILY [facility] Last Admin: 04/23/17 09:09 Dose: 100 mg Sodium Chloride ([place] Nasal [place]) 2 sprays ANTONI Q4 PRN PRN Reason: Nasal congestion Last Admin: 04/23/17 05:16 Dose: 2 spr - Labs Labs: 04/22/17 07:40 04/22/17 07:40 PT 10.9 SECONDS (9.6-11.2) 04/19/17 19:20 INR 1.05 (0.92-1.08) 04/19/17 19:20 APTT 34.0 SECONDS (23.3-32.5) H 04/19/17 19:20 - Constitutional Appears: No Acute Distress - Head Exam Head Exam: ATRAUMATIC, NORMAL INSPECTION, NORMOCEPHALIC - Eye Exam Eye Exam: EOMI, Normal appearance, PERRL Pupil Exam: NORMAL ACCOMODATION, PERRL - ENT Exam ENT Exam: Mucous Membranes Moist, Normal Exam - Neck Exam Neck Exam: Full ROM, Normal Inspection. absent: Lymphadenopathy - Respiratory Exam Respiratory Exam: Prolonged Expiratory Phase, NORMAL BREATHING PATTERN - Cardiovascular Exam Cardiovascular Exam: REGULAR RHYTHM, +S1, +S2. absent: Murmur - GI/Abdominal Exam GI & Abdominal Exam: Soft, Normal Bowel Sounds. absent: Tenderness - Rectal Exam Rectal Exam: NORMAL INSPECTION - Extremities Exam Extremities Exam: Full ROM, Normal Capillary Refill, Normal Inspection. absent : Joint Swelling, Pedal Edema Additional comments: PEDAL EDEMA RESOLVED - Back Exam Back Exam: NORMAL INSPECTION - Neurological Exam Neurological Exam: Alert, Awake, CN II-XII Intact, Normal Gait, Oriented x3 - Psychiatric Exam Psychiatric exam: Normal Affect, Normal Mood - Skin Skin Exam: Dry, Intact, Normal Color, Warm Assessment and Plan - Assessment and Plan (Free Text) Assessment: CHF RESOLVED RESPIRATORY FAILURE IMPROVED HTN-BETTER CONTROLLED ?COPD Plan: CONTINUE PRESENT RX ABGS ON RA TO DECIDE NEED FOR HOME O2 RX D/C IN AM IF STABLE
--- NOTE | 2017-04-23 10:44 | CP.PCM.PN ---
Subjective - Date & Time of Evaluation Date of Evaluation: 04/23/17 Time of Evaluation: 10:41 - Subjective Subjective: Pt is breathing better no sob pedal edema is less Objective - Vital Signs/Intake and Output Vital Signs (last 24 hours): Temp Pulse Resp BP Pulse Ox 97.8 F 62 18 176/80 H 100 04/23/17 08:17 04/23/17 09:10 04/23/17 08:17 04/23/17 09:10 04/23/17 08:17 Intake and Output: 04/23/17 04/23/17 06:59 18:59 Intake Total 300 Output Total 800 Balance -500 - Medications Medications: Current Medications Carvedilol (Coreg) 25 mg PO Q12H [facility] Last Admin: 04/23/17 02:21 Dose: 25 mg Furosemide (Lasix) 40 mg PO DAILY [facility] Insulin Detemir (Levemir) 20 units SC HS [facility] Last Admin: 04/22/17 21:21 Dose: 20 u Lactic Acid (Lac-Hydrin 12% Lotion (225 G)) 1 applic TOP TID [facility] Last Admin: 04/22/17 16:21 Dose: 1 applic Losartan Potassium (Cozaar) 50 mg PO DAILY [facility] Last Admin: 04/23/17 09:10 Dose: 50 mg Metformin HCl (Glucophage) 500 mg PO BID [facility] Last Admin: 04/23/17 09:09 Dose: 500 mg Sitagliptin Phosphate (Januvia) 100 mg PO DAILY [facility] Last Admin: 04/23/17 09:09 Dose: 100 mg Sodium Chloride ([place] Nasal [place]) 2 sprays ANTONI Q4 PRN PRN Reason: Nasal congestion Last Admin: 04/23/17 05:16 Dose: 2 spr - Labs Labs: 04/22/17 07:40 04/22/17 07:40 PT 10.9 SECONDS (9.6-11.2) 04/19/17 19:20 INR 1.05 (0.92-1.08) 04/19/17 19:20 APTT 34.0 SECONDS (23.3-32.5) H 04/19/17 19:20 - Head Exam Head Exam: NORMAL INSPECTION - Eye Exam Eye Exam: Normal appearance - ENT Exam ENT Exam: Normal Exam - Neck Exam Neck Exam: Normal Inspection - Respiratory Exam Respiratory Exam: NORMAL BREATHING PATTERN - Cardiovascular Exam Cardiovascular Exam: REGULAR RHYTHM - GI/Abdominal Exam GI & Abdominal Exam: Normal Bowel Sounds Assessment and Plan (1) Acute systolic CHF (congestive heart failure) Assessment & Plan: CHF controlled Status: Resolved (2) Essential (primary) hypertension Status: Acute (3) Diabetes mellitus Status: Acute
[2017-04-23 11:25] LABS: ABG ALLEN TEST YES; ARTERIAL BLOOD GAS HCO3 35.9 mmol/L (21-28); ARTERIAL BLOOD GAS O2 CAPACITY 14.9 mL/dL (16-24); ARTERIAL BLOOD GAS O2 CONTENT 14.6 ML/dL (15-23); ARTERIAL BLOOD GAS PH 7.41 (7.35-7.45); ARTERIAL BLOOD GAS PO2 87 mm/Hg (80-100); ARTERIAL BLOOD HGB O2 SAT 94.4 % (95.0-98.0); CARBOXYHEMOGLOBIN 2.1 % (0.5-1.5); HHB 1.7 % (0.0-5.0); METHEMOGLOBIN 1.8 % (0.0-3.0)
[2017-04-23] MEDS: Insulin Detemir 100 Units/ml Inj SC SCH (22:15)
[2017-04-24] VITALS: RESP 18
--- NOTE | 2017-04-24 11:22 | CP.PCM.DIS ---
Provider - Provider Date of Admission: 04/19/17 21:39 Attending physician: Raymond Agosto MD Time Spent in preparation of Discharge (in minutes): 30 Diagnosis - Discharge Diagnosis (1) COPD (chronic obstructive pulmonary disease) Status: Acute (2) CHF exacerbation Status: Acute (3) Diabetes mellitus Status: Acute (4) Essential (primary) hypertension Status: Acute (5) Hypercarbia Status: Acute (6) Respiratory distress Status: Acute (7) Acute systolic CHF (congestive heart failure) Status: Resolved Hospital Course - Lab Results Lab Results: Micro Results 04/20/17 04:00 Nose MRSA Culture (Admit) - Final MRSA NOT DETECTED Most Recent Lab Values WBC 8.0 K/uL (4.8-10.8) 04/22/17 07:40 RBC 3.97 Mil/uL (4.40-5.90) L 04/22/17 07:40 Hgb 10.1 g/dL (12.0-18.0) L 04/22/17 07:40 Hct 32.0 % (35.0-51.0) L 04/22/17 07:40 MCV 80.6 fl (80.0-94.0) 04/22/17 07:40 MCH 25.4 pg (27.0-31.0) L 04/22/17 07:40 MCHC 31.5 g/dL (33.0-37.0) L 04/22/17 07:40 RDW 17.8 % (11.5-14.5) H 04/22/17 07:40 Plt Count 183 K/uL (130-400) 04/22/17 07:40 MPV 8.9 fl (7.2-11.7) 04/22/17 07:40 Neut % (Auto) 70.1 % (50.0-75.0) 04/22/17 07:40 Lymph % (Auto) 9.6 % (20.0-40.0) L 04/22/17 07:40 [place] % (Auto) 11.2 % (0.0-10.0) H 04/22/17 07:40 Eos % (Auto) 8.9 % (0.0-4.0) H 04/22/17 07:40 Baso % (Auto) 0.2 % (0.0-2.0) 04/22/17 07:40 Neut # 5.6 K/uL (1.8-7.0) 04/22/17 07:40 Lymph # 0.8 K/uL (1.0-4.3) L 04/22/17 07:40 [place] # 0.9 K/uL (0.0-0.8) H 04/22/17 07:40 Eos # 0.7 K/uL (0.0-0.7) 04/22/17 07:40 Baso # 0.0 K/uL (0.0-0.2) 04/22/17 07:40 Neutrophils % (Manual) 78 % (42-75) H 04/20/17 06:30 Band Neutrophils % 2 % (0-2) 04/20/17 06:30 Lymphocytes % (Manual) 7 % (20-50) L 04/20/17 06:30 Monocytes % (Manual) 6 % (0-10) 04/20/17 06:30 Eosinophils % (Manual) 7 % (0-7) 04/20/17 06:30 Basophils % (Manual) 0 % (0-2) 04/20/17 06:30 Toxic Granulation Quality Control Microbiology Supervisor 04/20/17 06:30 Platelet Estimate Normal (NORMAL) 04/20/17 06:30 Large Platelets Quality Control Microbiology Supervisor 04/20/17 06:30 Giant Platelets Quality Control Microbiology Supervisor 04/20/17 06:30 Hypochromasia (manual) Slight 04/20/17 06:30 Poikilocytosis (manual Quality Control Microbiology Supervisor 04/20/17 06:30 Anisocytosis (manual) Slight 04/20/17 06:30 Microcytosis (manual) Quality Control Microbiology Supervisor 04/20/17 06:30 Tear Drop Cells Quality Control Microbiology Supervisor 04/20/17 06:30 Ovalocytes Slight 04/20/17 06:30 Schistocytes Quality Control Microbiology Supervisor 04/20/17 06:30 PT 10.9 SECONDS (9.6-11.2) 04/19/17 19:20 INR 1.05 (0.92-1.08) 04/19/17 19:20 APTT 34.0 SECONDS (23.3-32.5) H 04/19/17 19:20 pCO2 65 mm/Hg (35-45) H 04/23/17 11:20 pO2 87 mm/Hg (80-100) 04/23/17 11:20 HCO3 35.9 mmol/L (21-28) H 04/23/17 11:20 ABG pH 7.41 (7.35-7.45) 04/23/17 11:20 ABG Total CO2 43.2 mmol/L (22-28) H 04/23/17 11:20 ABG O2 Saturation 98.2 % (95-98) H 04/23/17 11:20 ABG O2 Content 14.6 ML/dL (15-23) L 04/23/17 11:20 ABG Base Excess 14.1 mmol/L (-2.0-3.0) H 04/23/17 11:20 ABG Hemoglobin 10.9 g/dL (11.7-17.4) L 04/23/17 11:20 ABG Carboxyhemoglobin 2.1 % (0.5-1.5) H 04/23/17 11:20 POC ABG HHb (Measured) 1.7 % (0.0-5.0) 04/23/17 11:20 ABG Methemoglobin 1.8 % (0.0-3.0) 04/23/17 11:20 ABG O2 Capacity 14.9 mL/dL (16-24) L 04/23/17 11:20 [place] Test Yes 04/23/17 11:20 ABG Potassium 3.8 mmol/L (3.6-5.2) 04/19/17 22:30 A-a O2 Difference -19.0 mm/Hg 04/23/17 11:20 Hgb O2 Saturation 94.4 % (95.0-98.0) L 04/23/17 11:20 Sodium 140.0 mmol/L (132-148) 04/19/17 22:30 Chloride 105.0 mmol/L (98-107) 04/19/17 22:30 Glucose 111 mg/dL (75-110) H 04/19/17 22:30 Lactate 0.6 mmol/L (0.7-2.1) L 04/19/17 22:30 Vent Mode Nasal cannula 04/23/17 04:42 Mechanical Rate 14 04/21/17 05:05 FiO2 21.0 % 04/23/17 11:20 Pressure Support 0 04/19/17 22:30 Inspiratory BiPAP 10 04/21/17 05:05 Expiratory BiPAP 5 04/21/17 05:05 Sodium 138 mmol/l (132-148) 04/22/17 07:40 Potassium 3.8 MMOL/L (3.6-5.0) 04/22/17 07:40 Chloride 99 mmol/L (98-107) 04/22/17 07:40 Carbon Dioxide 30 mmol/L (22-30) 04/22/17 07:40 Anion Gap 13 (10-20) 04/22/17 07:40 BUN 19 mg/dl (9-20) 04/22/17 07:40 Creatinine 0.8 mg/dL (0.8-1.5) 04/22/17 07:40 Est GFR ( Amer) > 60 04/22/17 07:40 Est GFR (Non-Af Amer) > 60 04/22/17 07:40 POC Glucose (mg/dL) 149 mg/dL (65-110) H 04/24/17 05:25 Random Glucose 108 mg/dL (75-110) 04/22/17 07:40 Calcium 8.4 mg/dL (8.4-10.2) 04/22/17 07:40 Total Bilirubin 0.9 mg/dl (0.2-1.3) 04/22/17 07:40 AST 22 U/L (17-59) 04/22/17 07:40 ALT 25 U/L (21-72) 04/22/17 07:40 Alkaline Phosphatase 69 U/L (38-126) 04/22/17 07:40 Troponin I 0.0480 ng/mL (0.00-0.120) 04/20/17 14:39 NT-Pro-B Natriuret Pep 2620 pg/ml (0-900) H 04/19/17 20:20 Total Protein 7.0 G/DL (6.3-8.2) 04/22/17 07:40 Albumin 3.4 g/dL (3.5-5.0) L 04/22/17 07:40 Globulin 3.6 gm/dL (2.2-3.9) 04/22/17 07:40 Albumin/Globulin Ratio 0.9 (1.0-2.1) L 04/22/17 07:40 Triglycerides 57 mg/DL (0-149) 04/20/17 06:30 Cholesterol 75 mg/dL (0-199) 04/20/17 06:30 LDL Cholesterol Direct < 30 mg/dL (0-129) 04/20/17 06:30 HDL Cholesterol 35 MG/DL (30-70) 04/20/17 06:30 Lipase 47 U/L (23-300) 04/19/17 20:20 Arterial Blood Potassium 3.8 mmol/L (3.6-5.2) 04/19/17 22:30 Urine Color Straw (YELLOW) 04/19/17 20:00 Urine Clarity Clear (Clear) 04/19/17 20:00 Urine pH 7.0 (5.0-8.0) 04/19/17 20:00 Ur Specific [place] 1.010 (1.003-1.030) 04/19/17 20:00 Urine Protein >=500 mg/dL (NEGATIVE) 04/19/17 20:00 Urine Glucose (UA) Neg mg/dL (Normal) 04/19/17 20:00 Urine Ketones Negative mg/dL (NEGATIVE) 04/19/17 20:00 Urine Blood Negative (NEGATIVE) 04/19/17 20:00 Urine Nitrate Negative (NEGATIVE) 04/19/17 20:00 Urine Bilirubin Negative (NEGATIVE) 04/19/17 20:00 Urine Urobilinogen 0.2-1.0 mg/dL (0.2-1.0) 04/19/17 20:00 Ur Leukocyte Esterase Trace [place]/uL (Negative) 04/19/17 20:00 Urine RBC (Auto) < 1 /hpf (0-3) 04/19/17 20:00 Urine Microscopic WBC 7 /hpf (0-5) H 04/19/17 20:00 Ur Squamous Epith Cells < 1 /hpf (0-5) 04/19/17 20:00 Urine Bacteria Rare (<OCC) 04/19/17 20:00 Hyaline Casts 0-2 /hpf (0-2) 04/19/17 20:00 Blood Type O POSITIVE 04/19/17 19:20 Blood Type Confirm O POSITIVE 04/19/17 21:40 Antibody Screen Negative 04/19/17 19:20 BBK History Checked No verified bt 04/19/17 19:20 - Hospital Course Hospital Course: SOB RESOLVED NO CHEST PAINS PEDAL EDEMA IMPROVED HYPERCARBIA PERSISTS ON ABGS BUT ACID-BASE STATUS IS BALANCED AND COMPENSATED Discharge Exam - Head Exam Head Exam: NORMAL INSPECTION - Eye Exam Eye Exam: EOMI, Normal appearance, PERRL Pupil Exam: NORMAL ACCOMODATION, PERRL - Respiratory Exam Respiratory Exam: Prolonged Expiratory Phase - GI/Abdominal Exam GI & Abdominal Exam: Normal Bowel Sounds - Rectal Exam Rectal Exam: NORMAL INSPECTION - Extremities Exam Extremities exam: pedal edema - Neurological Exam Neurological exam: Alert, CN II-XII Intact, Normal Gait, Oriented x3, Reflexes Normal - Psychiatric Exam Psychiatric exam: Normal Affect, Normal Mood - Skin Skin Exam: Dry, Intact, Normal Color, Warm Discharge Plan - Follow Up Plan Condition: STABLE Disposition: HOME/ ROUTINE Patient education suggested?: Yes Additional Instructions: DISCHARGE HOME TODAY FOLLOW UP WITH PMD CASE DISCUSSED WITH PT AND
[2017-04-24 12:23] VITALS: BP 158/70; PULSE 61; TEMP 97.8; O2SAT 99
== END 2017-04-24 15:08 | disposition home or self-care (01) | DRG 189 ==
LOC: EDBD 19:14 → H.ER 19:14 → H.ERHOLD 21:39 → H.ICU/CCU 04-20 00:28 → H.TEL 04-22 18:29 → UNDODISIN 04-24 14:16
PROVIDERS: ADMIT Internal Medicine Pulmonary Disease; ATTEND Internal Medicine Pulmonary Disease
PROC: 5A09557 Assistance with Respiratory Ventilation, Greater than 96 Consecutive Hours, Continuous Positive Airway Pressure (ICD-10-PCS; principal; 2017-04-19)
DX: J96.90 Respiratory failure, unspecified, unspecified whether with hypoxia or hypercapnia (principal); I50.21 Acute systolic (congestive) heart failure; J44.9 Chronic obstructive pulmonary disease, unspecified; R00.1 Bradycardia, unspecified; D64.9 Anemia, unspecified; E11.9 Type 2 diabetes mellitus without complications; I16.9 Hypertensive crisis, unspecified; Z91.11 Patient's noncompliance with dietary regimen; Z87.891 Personal history of nicotine dependence; Z96.643 Presence of artificial hip joint, bilateral; I11.0 Hypertensive heart disease with heart failure; T44.7X5A Adverse effect of beta-adrenoreceptor antagonists, initial encounter